=== PATIENT | female | born 2000 | race Caucasian/White ===

== ENCOUNTER 2025-02-01 08:53 | Outpatient (AMB) | payer BC, SELFPAY ==
--- NOTE | 2025-02-01 09:06 | MHC.PC.OV ---
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: Yes HPI HPI Comments History of Present Illness Details The patient is a 24 year old female with PMH of Venessa, MDD presenting to [facility]. She has a history of combined anxiety and depression, for which she has been taking Lexapro 20 mg for approximately 2.5 years and is doing well on this medication. The Lexapro was previously prescribed by her family doctor. The patient has a diagnosis of Venessa's thyroiditis and is prescribed levothyroxine 75 mcg. She reports it has been over a year since her last blood work for this condition. She is a vegetarian and follows a gluten-free diet, which she started around the time of her Venessa's diagnosis after reading about a potential connection and experiencing stomach issues, and she notes that cutting out gluten made her feel better. Additionally, the patient has noticed she has been more constipated recently. She reports regular menses and has no history of surgery. Her family history is positive for breast cancer in her paternal grandmother and a heart attack in her paternal grandfather. There is no family history of colon cancer. [facility] Social History Housing: House Patient Tobacco Use Status: Never used Tobacco Tobacco use type: Cigarette e-Cigarette/Vaping Use: Never Used service: No Current occupational status: employed Current occupation: [employer] Questionnaire PHQ-9 Over the last 2 weeks, how often have you been bothered by any of the following problems? 1. Little interest or pleasure in doing things: several days 2. Feeling down, depressed, or hopeless: several days 3. Trouble falling or staying asleep, or sleeping too much: several days 4. Feeling tired or having little energy: several days 5. Poor appetite or overeating: several days 6. Feeling bad about yourself - or that you are a failure or have let yourself or your family down: several days 7. Trouble concentrating on things, such as reading the newspaper or watching television: several days 8. Moving or speaking so slowly that other people could have noticed. Or the opposite - being so fidgety or restless that you have been moving around a lot more than usual: not at all 9. Thoughts that you would be better off or of hurting yourself in some way: not at all Total score: 7 Depression Screening Interpretation: Positive (Lexapro) Depression Screening Follow-up: In treatment Depression Screening Done: Yes Source: Developed by Drs. Tristan Abraham, Gianna Hollis, Contreras Haque and colleagues, with an educational ramos from [employer]. Thrive Questionnaire Date Thrive assessed: 02/01/25 I am a: Patient What is your living situation today?: I have a steady place to live Within the past 12 months, did the food you bought not last and you didn't have the money to get more?: Never true Within the past 12 months, did you worry whether your food would run out before you got money to buy more?: Never true Do you have trouble paying for medicines?: No Do you have trouble getting transportation to medical appointments?: No Do you have trouble paying your heating and electricity bill?: No Do you have trouble taking care of your child, family member or friend?: No Do you have trouble with day-to-day activities such as bathing, preparing meals, shopping, managing finances, etc.?: No Are you currently unemployed and looking for a job?: No Are you interested in more education?: No Please select the resources that you would like help with: None Currently or been in a relationship where the following occur: No concerns reported THRIVE Score: 0 AUDIT C Alcohol Use Questionnaire (AUDIT-C) 1. How often do you have a drink containing alcohol?: Never 3. How often do you have six or more drinks on one occasion?: Never Total Score: 0 FRIDA-7 AMB Questionnaire FRIDA-7 Date FRIDA - 7 assessed: 02/01/25 Feeling nervous, anxious, or on edge: 1 = Several days Not being able to stop or control worryin = Several days Worrying too much about different things: 1 = Several days Trouble relaxin = Several days Being so restless that it is hard to sit still: 1 = Several days Becoming easily annoyed or irritable: 1 = Several days Feeling afraid as if something awful might happen: 1 = Several days Total FRIDA-7 score (0-4 normal; 5-9 mild; 10-14 moderate; 15-21 severe): 7 Source: Developed by Drs. Tristan Abraham, Gianna Hollis, Contreras Haque and colleagues, with an educational ramos from [employer]. Review of Systems Const Details: Positives besides what was mentioned in HPI are in BOLD Constitutional: No Weight Change, No Fever, No Chills, No Night Sweats, No Fatigue, No Malaise ENT/Mouth: No Hearing Changes, No Ear Pain, No Nasal Congestion, No Sinus Pain, No Hoarseness, No sore throat, No Rhinorrhea, No Swallowing Difficulty Eyes: No Eye Pain, No Swelling, No Redness, No Foreign Body, No Discharge, No Vision Changes Cardiovascular: No Chest Pain, No SOB, No PND, No Dyspnea on Exertion, No Orthopnea, No Claudication, No Edema, No Palpitations Respiratory: No Cough, No Sputum, No Wheezing, No Smoke Exposure, No Dyspnea Gastrointestinal: No Nausea, No Vomiting, No Diarrhea, No Constipation, No Pain, No Heartburn, No Anorexia, No Dysphagia, No Hematochezia, No Melena, No Flatulence, No Jaundice Genitourinary: No Dysmenorrhea, No DUB, No Dyspareunia, No Dysuria, No Urinary Frequency, No Hematuria, No Urinary Incontinence, No Urgency, No Flank Pain, No Urinary Flow Changes, No Hesitancy Musculoskeletal: No Arthralgias, No Myalgias, No Joint Swelling, No Joint Stiffness, No Back Pain, No Neck Pain, No Injury History Skin: No Skin Lesions, No Pruritis, No Hair Changes, No Breast/Skin Changes, No Nipple Discharge Neuro: No Weakness, No Numbness, No Paresthesias, No Loss of Consciousness, No Syncope, No Dizziness, No Headache, No Coordination Changes, No Recent Falls Psych: No Anxiety/Panic, No Depression, No Insomnia, No Personality Changes, No Delusions, No Rumination, No SI/HI/AH/VH, No Social Issues, No Memory Changes, No Violence/Abuse Hx., No Eating Concerns Heme/Lymph: No Bruising, No Bleeding, No Transfusions History, No Lymphadenopathy Endocrine: No Polyuria, No Polydipsia, No Temperature Intolerance Physical exam (Primary Care) Vital Signs: Last Vital Signs Temp 97.4 F 02/01/25 09:09 Pulse 88 02/01/25 09:09 Resp 16 02/01/25 09:09 BP 110/50 L 02/01/25 09:09 Pulse Ox 98 02/01/25 09:09 Oxygen Delivery Method Room Air 02/01/25 09:09 BMI result Body Mass Index 24.4 Tobacco/Smoking Status: Tobacco use Status Tobacco use date assessed 02/01/25 02/01/25 09:14 Patient Tobacco Use Status Never used Tobacco 02/01/25 09:14 Tobacco use type Cigarette 02/01/25 09:14 e-Cigarette/Vaping Use Never Used 02/01/25 09:14 PHQ-9: PHQ-9 Score PHQ-9: Total score 7 02/01/25 09:14 Depression Screening Interpretation: Positive (Lexapro) Depression Screening Follow-up: In treatment Thrive Assessment: Date of Thrive Assessment Date Thrive assessed 02/01/25 02/01/25 09:14 Currently or been in a relationship where the following occur: No concerns reported Const Other: Pertinent findings are in BOLD GENERAL APPEARANCE NAD, activity normal for age, well developed/ well nourished, no cyanosis, pallor, or diaphoresis. EYES lids/conjunctiva normal. EARS/NOSE/THROAT Mucous membranes moist, nares normal, lips/teeth normal uvula midline without oral pharyngeal erythema, exudate or swelling TMs normal bilaterally. No lymphangitis/lymphedema. HEAD/NECK normocephalic atraumatic, no facial trauma, neck is supple. RESPIRATORY respiratory effort normal, speaks in full sentences, no tripod position, no accessory muscle use. Lungs clear to auscultation without rhonchi, wheezes, rales CARDIAC Regular rate and rhythm, no edema. ABDOMINAL Soft, ND/NT. No evidence of fluid wave. No pulsatile masses on exam, rebound tenderness, Cross sign or pain over Mcburney's point. MUSCLES/EXTREMITIES No abnormal range of motion, no swelling. SKIN Warm, pink and dry. No rashes, dermatoses, petechiae or lesions. NEUROLOGICAL Speech is clear and appropriate. Normal level of consciousness. Gait and coordination are normal. 5/5 strength in all extremities. PSYCH Normal mood and affect. Judgement/competence is appropriate Coding Level of Care Code New Pt Prev Care 18-39yr([id number] Diagnoses Healthcare maintenance Z00.00 Venessa thyroiditis E06.3 Current moderate episode of major depressive disorder, unspecified whether recurrent F32.1 Major depression recurrence: unspecified whether recurrent Active/Remission status: currently active Major depression episode severity: moderate Constipation, unspecified constipation type K59.00 Constipation type: unspecified constipation type Time Spent (min) 30 Assessment & Plan Assessment & Plan (1) Healthcare maintenance: Code(s): Z00.00 - Encounter for general adult medical examination without abnormal findings Category: Medical Plan: CBC, CMP, Lipid panel, A1C, TSH w T4, vit D. Ordered. Shingles 2 doses when >50 yo. COVID: two doses. Completed. Tdap: Will check her records and will bring them with her on her next visit. Pneumococcal: >50 yo. 18-49 with CKD, lung disease, weakened immune system, Heart disease, DM, cochlear implant. At 50. Flu vaccine: Completed in 2024. Colonoscopy: 45-75. At 45. AAA: 65 -75. NI. CT lun - 80. NI. HPV: Declined. HIV: Ordered. HCV: Ordered. Dexa: Due at 65. Mammogram: Due at 40. (2) Venessa thyroiditis: Code(s): E06.3 - Autoimmune thyroiditis Category: Medical Plan: - Continue levothyroxine 75 mcg daily. - Ordered general lab work, including thyroid function tests, to monitor condition. - Medication dosage may be adjusted based on lab results. - Discussed continuing her vegetarian and gluten-free diet, and the potential negative impact of sugars. (3) MDD (major depressive disorder): Code(s): F32.9 - Major depressive disorder, single episode, unspecified Category: Medical Qualifiers: Major depression recurrence: unspecified whether recurrent Active/Remission status: currently active Major depression episode severity: moderate Qualified Code(s): F32.1 - Major depressive disorder, single episode, moderate Plan: - Continue Lexapro 20 mg daily. - Will take over prescribing of Lexapro from previous provider. - The patient is doing well with the current regimen and does not have a therapist or psychiatrist. (4) Constipation: Code(s): K59.00 - Constipation, unspecified Category: Medical Qualifiers: Constipation type: unspecified constipation type Qualified Code(s): K59.00 - Constipation, unspecified Plan: - Advised that dairy products can sometimes cause constipation and this is something she could explore. Plan I met with the patient for the first time to establish care. We discussed her ongoing management for Venessa's thyroiditis and her combined anxiety and depression. I will take over the prescriptions for her levothyroxine and Lexapro. I ordered a comprehensive set of labs to get baseline values and check her thyroid levels, including a CBC, lipids, A1c, vitamin D, HIV, and hepatitis C, with her consent. I advised her that it is better to have these labs drawn while fasting for more accurate results and that we would adjust her thyroid medication if needed based on the outcome. We also discussed health maintenance, including the recommendation for a Pap smear as she has not had one before, and she will check her records regarding her last tetanus vaccination. I reviewed her diet, noting her vegetarian and gluten-free choices, and encouraged her to ensure adequate iron intake and to be mindful of sugar consumption. Regarding her new complaint of constipation, I mentioned that dairy can be a trigger for some people. The physical exam was unremarkable. She will follow up in one year for her annual exam, or sooner if needed. Orders: Orders Lipid Panel Today Z00.00 - Encounter for general adult medical examination without abnormal findings HIV Ab/Ag Today Z00.00 - Encounter for general adult medical examination without abnormal findings Hepatitis C Antibody Reflex Today Z00.00 - Encounter for general adult medical examination without abnormal findings TSH reflex Free T4 Today Z00.00 - Encounter for general adult medical examination without abnormal findings Thyroid Peroxidase Antibodies Today E06.3 - Autoimmune thyroiditis, F32.9 - Major depressive disorder, single episode, unspecified Complete Blood Count no Diff Today Z00.00 - Encounter for general adult medical examination without abnormal findings Comprehensive Met. Panel Today Z00.00 - Encounter for general adult medical examination without abnormal findings Hemoglobin A1c Today Z00.00 - Encounter for general adult medical examination without abnormal findings Vitamin D 25-OH Total Today Z00.00 - Encounter for general adult medical examination without abnormal findings Medications: New escitalopram oxalate (Lexapro) 20 mg PO DAILY 90 tabs 3RF levothyroxine 75 mcg PO DAILY 90 caps 3RF multivitamin 1 tab PO DAILY 30 tabs 3RF
[2025-02-01 09:09] VITALS: BP 110/50; PULSE 88; RESP 16; TEMP 36.3; O2SAT 98; BMI 24.4
== END 2025-02-01 09:35 | disposition home or self-care (01) ==
LOC: HO.HMCH 08:54
PROVIDERS: PCP Internal Medicine; Visit Provider Internal Medicine
DX: Z00.00 Encounter for general adult medical examination without abnormal findings (principal); E06.3 Autoimmune thyroiditis; F32.1 Major depressive disorder, single episode, moderate; K59.00 Constipation, unspecified

== ENCOUNTER 2025-02-02 07:11 | Outpatient (REF) | payer BC, SELFPAY ==
--- OUTSIDE RECORDS SUMMARY | 2025-02-02 07:15 | XMS_ITS | Clinical Summary ---
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 Name Role Phone Unavailable Primary Care Provider Unavailabl e Allergies No known active allergies Medications escitalopram (Lexapro) 20 MG tablet Escitalopram Oxalate 20 MG 3 Active levothyroxine (Synthroid, Levoxyl) 75 MCG tabletIndicatio ns:Venessa thyroiditis 1 TABLET (75 MCG) ORALLY DAILY IN THE MORNING ON AN EMPTY STOMACH 90 tablet 1 5 Active Active Problems Problem Noted Date Diagnosed Date Venessa thyroiditis 09/27/2022 Encounters Date Type Department Care Team Description 12/09/2024 Refill [facility] [address] [place] [address] Lance Stockton NP Venessa thyroiditis from Last 3 Months Family History Medical History Relation Name Comments Depression Brother aisha mahoney Diabetes Maternal Grandmother azam sigala Cancer Paternal Grandmother daniel mahoney Depression Sister nirav almazaner Relation Name Status Comments Brother aisha almazaner Maternal Grandmother azam heckler Paternal Grandmother daniel lander Sister nirav lander Social History Tobacco Use Types Packs/Day Years Used Date Smoking Tobacco: Never Smokeless Tobacco: Never Alcohol Use Standard Drinks/Week Comments Never 0 (1 standard drink = 0.6 oz pur e alcohol) Depression Answer Date Recorded Patient Health Questionnaire-9 Score 5 12/29/2023 Patient Health Questionnaire-9 Score 5 12/29/2023 Last PHQ-9: Questionnaire Data 1 1 02/27/2023 Housing Stability Answer Date Recorded What is your housing situation today? I have jose enrique grant 01/04/[address] you li ve. Do you have problems with any of the following? None of the above 01/04/2024 Food Insecurity Answer Date Recorded Within the past 12 months, y ou worried that your food would run out before you got money to buy more: Never True 01/04/2024 Within the past 12 months,th e food you bought just didn't last and you didn't have enough money to get more: Never True Transportation Answer Date Recorded In the past 12 months, has l ack of transportation kept you from medical appts, meetings, work or from getting things needed for daily living? No 01/04/2024 Utilities Answer Date Recorded In the past 12 months, has t he electric, gas, oil or water company threatened to shut off services in your home? No 01/04/2024 Depression Answer Date Recorded Patient Health Questionnaire-2 Score 1 12/29/2023 Internet Access Answer Date Recorded Internet Access Q1 Yes 01/04/2024 Internet Access Q2 Not on file 01/04/2024 Comments No Sex and Gender Information Value Date Recorded Sex Assigned at Female 12/26/2023 10:52 AM EST Legal Sex Female 10:50 AM EST Gender Identity Female 12/26/2023 10:52 AM EST Sexual Orientation Lesbian 12/26/2023 10 :52 AM EST Last Filed Vital Signs Vital Sign Reading Time Taken Comments Blood Pressure 116/60 01/05/2024 3:06 PM EST Pulse 98 01/05/2024 3:06 PM EST Temperature 36.7 C (98 F) 01/05/2024 3:06 PM EST Respiratory Rate - - Oxygen Saturation 97% 01/05/2024 3:06 PM EST Inhaled Oxygen Concentration - - Weight 53.5 kg (118 lb) 01/05/2024 3:06 PM EST Height 156.4 cm (5' 1.58 ) 01/05/2024 3:06 PM ES T Body Mass Index 21.88 01/05/2024 3:06 PM EST Plan of Treatment Health Maintenance Due Date Last Done Comments Chlamydia and Gonorrhea Screening 2001 HIV Screening 2001 Disability Screening 2001 Hepatitis B Vaccines (2 of 3 - 3-dose series) 2001 2001 IPV Vaccines (2 of 3 - 4-dos e series) 2001 2001 Alcohol/Substance Use Screening 2013 Family Planning (PISQ) 2016 HPV Vaccines (1 - 3-dose series) 2016 Meningococcal B Vaccine (1 o f 2 - Standard) 2017 Hepatitis C Screening 07/08/2019 DTaP/Tdap/Td Vaccines (2 - Tdap) 2020 2001 Pap Smear 2022 COVID-19 Vaccine (4 - 2024-2 6 season) 2024 01/07/2022, 06/23/2020, 06/02/2020 Influenza Vaccine (#1) 2024 Depression Screening 12/28/2024 12/29/2023, 12/29/2023 SDOH Screening 01/03/2025 01/04/2024 Tobacco Screening 01/04/2025 01/05/2024 Zoster Vaccines (1 of 2) 07/08/2051 RSV Patients and Patients Aged 60 years or older (1 - 1-dose 75+ series) 2076 HIB Vaccines Aged Out 2001 No longer eligi ble based on patient's age to complete this topic Pneumococcal Vaccine: Pediatrics (0 to 5 Years) and At-Risk Patients (6 to 49) Years Aged Out 2001 No longer eligible b ased on patient's age to complete this topic Hepatitis A Vaccines Aged Out No long er eligible based on patient's age to complete this topic Meningococcal Vaccine Aged Out No jeremie fidel eligible based on patient's age to complete this topic RSV under 20 months Aged Out No longe r eligible based on patient's age to complete this topic Rotavirus Vaccines Aged Out No longer eligible based on patient's age to complete this topic Insurance BS PPO
--- OUTSIDE RECORDS SUMMARY | 2025-02-02 07:15 | XMS_ITS | Clinical Summary ---
Author Organization [facility] Address [address] [place], [place] [address] Phone Care Team Providers Care Managing Principal Name Role Phone Pcp, Unknown Primary Care Provider Unavailabl e Allergies No known active allergies Medications fluconazole (DIFLUCAN) 150 MG tablet Take 150 mg by mouth once. Active phenazopyridine (PYRIDIUM) 100 MG tabletIndication s:Dysuria Take 1 tablet (100 mg total) by mouth 3 (three) times a day as needed for pain (specific location in comments). 10 tablet 1 Active Additional Information Patient not taking.Reported on 04/16/2023 levothyroxine (SYNTHROID, LEVOTHROID) 75 MCG tablet Take 75 mcg by mouth every morning. Active loperamide (IMODIUM) 2 mg capsuleIndicatio ns:Diarrhea, unspecified Oral: Initial: 4 mg, followed by 2 mg after each loose stool; maximum: 16 mg/day (OTC: 8 mg/day). Limit use to 48 hours 10 capsule 4 Active Additional Information Patient not taking.Reported on 09/23/2023 omeprazole (PRILOSEC) 40 MG capsule 1 capsule. Active ofloxacin (FLOXIN) 0.3 % otic solution INSTILL 5 DROPS INTO AFFECTED EAR TWICE A DAY FOR 7 DAYS 4 Active valACYclovir (VALTREX) 1000 MG tablet TAKE 2 TABLETS (2,000 MG) ORALLY EVERY 12 HOURS FOR 1 DAY 4 Active escitalopram oxalate (LEXAPRO) 20 MG tablet Take 1 tablet by mouth every morning. 4 Active Active Problems No known active problems Social History Tobacco Use Types Packs/Day Years Used Date Smoking Tobacco: Never Assessed Education Answer Date Recorded Are you interested in more education? Not on alaina e 06/14/2022 Are you concerned about learning? Not on file 06/14/2022 No 06/14/2022 No 06/14/2022 Digital Access Answer Date Recorded No 07/16/2022 No 07/16/2022 Reliable internet access at home? Not on file 07/16/2022 Device with a working camera? Not on file Comments No Sex and Gender Information Value Date Recorded Sex Assigned at Not on file Legal Sex Female 5:42 PM EDT Gender Identity Not on file Sexual Orientation Not on file Last Filed Vital Signs Vital Sign Reading Time Taken Comments Blood Pressure 111/71 09/23/2023 1:54 PM EDT Pulse 81 09/23/2023 1:54 PM EDT Temperature 36.7 C (98.1 F) 09/23/2023 1:54 PM EDT Respiratory Rate 17 05/09/2023 4:17 PM EDT Oxygen Saturation 99% 09/23/2023 1:54 PM EDT Inhaled Oxygen Concentration - - Weight 54.4 kg (120 lb) 09/23/2023 1:54 PM EDT Height 157.5 cm (5' 2 ) 09/23/2023 1:54 PM EDT Body Mass Index 21.95 09/23/2023 1:54 PM EDT Plan of Treatment Health Maintenance Due Date Last Done Comments Adult Td,Tdap Booster 2001 TSH LEVEL 2001 DEPRESSION SCREENING 2013 SMOKING Hx and SMOKELESS TOBACCO SCREENING 2014 HPV VACCINES (1 - 3-dose series) 2016 CHLAMYDIA SCREENING 2017 MENINGOCOCCAL VACCINES (B) ( 1 of 2 - Standard) 2017 HEPATITIS C SCREENING 07/08/2019 HIV ONE-TIME SCREENING (18-6 5 YEARS) 07/08/2019 PAP SMEAR 2022 INFLUENZA VACCINE (#1) 2024 COVID-19 VACCINE ( - 2024-2 6 season) 2024 01/07/2022, 06/23/2020, 06/02/2020 HEPATITIS A VACCINES Aged Out No long er eligible based on patient's age to complete this topic HIB VACCINES Aged Out No longer eligi ble based on patient's age to complete this topic MENINGOCOCCAL VACCINES (ACWY) Aged Out No longer eligible based on patient's age to complete this topic PNEUMOCOCCAL VACCINES (0-49 years) Aged Out No longer eligible b ased on patient's age to complete this topic Medical Devices Not on file Insurance GENERIC [employer] [place] [address] Care Teams Managing Principal Relationship Specialty Start Date End Date Pcp, Unknown PCP - General 04/16/23 Additional Source Comments The information contained in this document represents components of the legal health record. It is not the complete legal health record.[facility]
[2025-02-02 07:53] LABS: Hematocrit 40.2 % (37.0-47.0); Hemoglobin 13.4 g/dl (12.0-16.0); Mean Corpuscular HGB Conc 33.3 g/dl (31.0-35.0); Mean Corpuscular Hemoglobin 29.6 pg (27.0-33.0); Mean Corpuscular Volume 88.7 fL (80.0-98.0); NRBC Abs Auto 0.000 X10*3/uL (0.0-0.012); NRBC Pct Auto 0.0 /100WBC (0.0-0.2); Platelet Count 275 X10*3/uL (160-400); Red Blood Count 4.53 X10*6/uL (4.20-5.50); White Blood Count 4.6 X10*3/uL (4.8-10.8)
[2025-02-02 08:21] LABS: Alanine Aminotransferase 21 U/L (0-31); Albumin Level 4.7 g/dL (3.5-5.0); Alkaline Phosphatase 62 U/L (39-117); Anion Gap 11 (12-20); Aspartate Amino Transferase 25 U/L (5-31); Blood Urea Nitrogen 8 mg/dL (9-16); Calcium 9.4 mg/dL (8.4-10.2); Carbon Dioxide 24 mmol/L (22-29); Chloride 107 mmol/L (96-108); Cholesterol 142 mg/dL (<200); Estimated Glomerular Filt Rate > 60; HDL Cholesterol 49 mg/dL (>40); Potassium 4.0 mmol/L (3.3-5.1); Sodium 138 mmol/L (135-145); Total Protein 7.3 g/dL (6.5-8.0); Triglycerides 94 mg/dL (<150)
[2025-02-02 08:27] LABS: HIV Num 1 0.09 S/CO (0.00-0.99); ~HepC Num1 0.62 S/CO (0.00-0.79); ~Hepatitis C Antibody Nonreactive (Nonreactive)
== END 2025-02-02 07:12 | disposition home or self-care (01) ==
LOC: HO.LAB 07:11
PROVIDERS: PCP Internal Medicine; Visit Provider Internal Medicine
DX: Z00.00 Encounter for general adult medical examination without abnormal findings (principal); Z11.4 Encounter for screening for human immunodeficiency virus [HIV]; Z11.59 Encounter for screening for other viral diseases; Z01.84 Encounter for antibody response examination; Z13.1 Encounter for screening for diabetes mellitus; Z13.21 Encounter for screening for nutritional disorder; E06.3 Autoimmune thyroiditis; F32.9 Major depressive disorder, single episode, unspecified
CPT/HCPCS: 36415; 80053; 80061; 82306; 83036; 84443; 85027; 86376; 86803; 87389